=== PATIENT | female | born 1990 | race Caucasian/White ===

== ENCOUNTER 2017-11-16 12:47 | Emergency (ER) | payer OTHER ==
--- NOTE | 2017-11-16 13:29 | EDPHY ---
HPI/HX/ROS/PE/MDM Narrative: CHIEF COMPLAINT: Rib pain, pleuritic pain after fall HPI: The patient is a 27 y/o female complaining of left upper rib pain secondary to a trip and fall 3 days ago. She states she tripped on pavement and fell directly onto her chest and left breast. She didn't have much discomfort until last night when she noticed a sharp pain along her left upper chest that is worse with inspiration. She denies any other injuries or complaints. She has not used anything for pain. She is normally healthy. REVIEW OF SYSTEMS: Aside from elements discussed in the HPI, a comprehensive 10-point review of systems was reviewed and is negative. PMH: Denies SOCIAL HISTORY: Employed as cook PHYSICAL EXAM: General:Patient is alert, in no acute distress. ENT:Eyes are normal to inspection. ENT inspection normal. Neck: Normal inspection. Full range of motion. Respiratory:No respiratory distress. Breath sounds normal bilaterally. Cardiovascular: Regular rate and rhythm. Strong peripheral pulses. Normal cap refill. Abdomen:The abdomen is nontender to palpation. There are no peritoneal signs. Extremities: Normal appearance. Full range of motion. Neuro: Oriented x3. Normal motor function. Normal sensory function. ED Course: This is a healthy and well-appearing 27 y/o female who presents with sharp left upper chest pain worse with inspiration 3 days after a fall directly onto her chest. Her exam is unremarkable. She is not tachycardic, hypoxemic, nor tachypneic. Chest x-ray does not show obvious fracture, pneumothorax, or other abnormality. Presentation consistent with rib contusion. She will receive 60mg IM Toradol here and be discharged with standard rib contusion care and follow up instructions. Return precautions discussed. She is comfortable with this plan. - Data Points Imaging: I viewed and interpreted images myself General Time Seen by Provider: 11/16/17 13:07 Initial Vital Signs: Initial Vital Signs Temperature (C) 36.4 C 11/16/17 12:52 Heart Rate 67 11/16/17 12:52 Respiratory Rate 16 11/16/17 12:52 Blood Pressure 115/78 11/16/17 12:52 O2 Sat (%) 100 11/16/17 12:52 O2 Delivery Mode Room Air Allergies/Adverse Reactions: Sulfa (Sulfonamide Antibiotics) Allergy (Verified 11/16/17 12:51) Home Medications: Medication Instructions Recorded Naproxen [Naprosyn] 500 mg PO BID PRN #10 tablet 11/16/17 Departure - Departure Disposition: Home, Routine, Self-Care Clinical Impression: Contusion of rib on left side Condition: Good Instructions: Rib Contusion (ED) Additional Instructions: 1. Use Tylenol, ibuprofen, and/or naproxen as directed on the packaging for pain and inflammation over the next few days. You received a medication similar to ibuprofen today, so you should not take another dose of this until late tonight or tomorrow. 2. Apply ice packs or warm compresses to the site if helpful for pain. 3. You can also try lidocaine patches. These are available [id number]. Use as directed on the packaging. 4. Follow up with your primary care provider for unimproved symptoms over the next week. 5. Return to the ED for worsening of condition. Referrals: [facility],. [Clinic] - As per Instructions Glenn Combs MD [Medical Doctor] - As per Instructions Prescriptions: Naproxen [Naprosyn] 500 mg PO BID PRN #10 tablet PRN Reason: Pain, Moderate Report Scribed for: Charles Montoya Report Scribed by: Debora Kohli Date of Report: 11/16/17 Time of Report: 13:12 Physician Review and Approval Statement: Portions of this note were transcribed by an ED scribe. I personally performed the history, physical exam, and medical decision making; and confirm the accuracy of the information in the transcribed note.
[2017-11-16] MEDS ORDERED: KETOROLAC 30 MG/1 ML SDV IM ONE (13:41)
[2017-11-16 14:21] VITALS: BP 120/77
== END 2017-11-16 14:21 | disposition home or self-care (01) ==
DX: S20.20XA Contusion of thorax, unspecified, initial encounter (principal); W01.198A Fall on same level from slipping, tripping and stumbling with subsequent striking against other object, initial encounter; Y92.480 Sidewalk as the place of occurrence of the external cause
CPT/HCPCS: J1885

== ENCOUNTER 2018-02-11 13:36 | Emergency (ER) | payer OTHER ==
[2018-02-11 13:42] VITALS: BP 124/58
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
== END 2018-02-11 14:11 | disposition home or self-care (01) ==
DX: S06.0X0A Concussion without loss of consciousness, initial encounter (principal); Z87.891 Personal history of nicotine dependence; V43.52XA Car driver injured in collision with other type car in traffic accident, initial encounter; Y92.410 Unspecified street and highway as the place of occurrence of the external cause; Y99.8 Other external cause status; Y93.89 Activity, other specified